=== PATIENT | female | born 1945 | race Hispanic/Latino ===

== ENCOUNTER 2021-09-02 12:47 | Emergency (ER) | payer MEDICARE ==
[~2021-09-02] VITALS: Ht 157.5 cm; Wt 72.6 kg
[2021-09-02 15:51] LABS: BASOPHILS % (AUTO) 0.6 % (0.0-5.0); EOSINOPHILS % (AUTO) 3.2 % (0.0-8.0); HEMATOCRIT 24.8 % (36-48); LYMPHOCYTES % (AUTO) 23.5 % (21.0-51.0); MEAN CORPUSCULAR HEMOGLOBIN 29.2 pg (27.0-33.0); MEAN CORPUSCULAR VOLUME 93.9 fL (79-99); MONOCYTES % (AUTO) 5.9 % (3.0-13.0); NEUTROPHILS % (AUTO) 66.3 % (40.0-77.0); PLATELET COUNT (AUTO) 140 K/uL (130-400); RED BLOOD CELL COUNT(AUTO) 2.64 MIL/uL (4.00-5.50); RED CELL DISTRIBUTION WIDTH 13.3 % (11.0-15.5); WHITE BLOOD COUNT (AUTO) 6.6 K/uL (4.8-10.8)
[2021-09-02 16:00] LABS: CREATININE 5.3 mg/dL (0.5-1.5); POTASSIUM 5.5 mmol/L (3.5-5.1)
[2021-09-02 16:14] LABS: BILIRUBIN,TOTAL 0.2 mg/dL (0.2-1.0)
[2021-09-02 16:28] LABS: TOTAL PROTEIN, SERUM 6.4 g/dL (6.0-8.3)
[2021-09-02 18:24] VITALS: BP 172/81
== END 2021-09-02 18:27 | disposition home or self-care (01) ==
LOC: EDH 12:47
DX: I12.9 Hypertensive chronic kidney disease with stage 1 through stage 4 chronic kidney disease, or unspecified chronic kidney disease (principal); N18.9 Chronic kidney disease, unspecified; E78.00 Pure hypercholesterolemia, unspecified; J45.909 Unspecified asthma, uncomplicated; Z88.6 Allergy status to analgesic agent; Z90.49 Acquired absence of other specified parts of digestive tract
CPT/HCPCS: 36415; 80053; 84484; 85025; 93005

== ENCOUNTER 2023-10-23 13:47 | Emergency (ER) | payer MEDICARE ==
[~2023-10-23] VITALS: Ht 157.5 cm; Wt 72.6 kg
[~2023-10-23 13:47] MED LIST: APIX5TAB PO; ATOR10TA69 PO; HYDR50TA37 PO; LEVO750T68 PO; OSEL30CA PO; TORS100T16 PO
[2023-10-23] MEDS: HYDRALAZINE 20MG/ML VIAL IV ONE (15:10)
[2023-10-23] MEDS: ACETAMINOPHEN 500 MG TABLET PO ONE (15:10)
[2023-10-23 15:32] LABS: BASOPHILS # (AUTO) 0.05 K/uL (0.00-0.20); BASOPHILS % (AUTO) 0.8 % (0.0-5.0); HEMATOCRIT 40.7 % (36-48); IMMATURE GRANULOCYTE ABSOLUTE 0.02 K/uL (0-1); LYMPHOCYTES % (AUTO) 15.3 % (21.0-51.0); MEAN CORPUSCULAR HEMOGLOBIN 30.9 pg (27.0-33.0); MEAN CORPUSCULAR HGB CONC 32.4 g/dL (32.0-36.0); MEAN CORPUSCULAR VOLUME 95.3 fL (79-99); MONOCYTES # (AUTO) 0.5 K/uL (0.1-1.0); MONOCYTES % (AUTO) 7.4 % (3.0-13.0); NEUTROPHILS # (AUTO) 4.5 K/uL (1.8-7.7); NEUTROPHILS % (AUTO) 67.2 % (40.0-77.0); PLATELET COUNT (AUTO) 143 K/uL (130-400); RED BLOOD CELL COUNT(AUTO) 4.27 MIL/uL (4.00-5.50); RED CELL DISTRIBUTION WIDTH 13.9 % (11.0-15.5); WHITE BLOOD COUNT (AUTO) 6.7 K/uL (4.8-10.8)
[2023-10-23 15:44] LABS: CREATININE 4.2 mg/dL (0.5-1.5); POTASSIUM 4.4 mmol/L (3.5-5.1)
[2023-10-23 15:48] LABS: ALBUMIN 3.4 g/dL (3.5-5.0); BILIRUBIN,TOTAL 0.6 mg/dL (0.2-1.0); TOTAL PROTEIN, SERUM 6.8 g/dL (6.0-8.3)
[2023-10-23 15:58] VITALS: BP 162/71; PULSE 79; RESP 18; O2SAT 98
[2023-10-23] MEDS: NITROGLYCERIN 0.4 MG SL TAB SL PRN (16:43)
== END 2023-10-23 17:04 | disposition home or self-care (01) ==
LOC: EDH 13:47
DX: I10 Essential (primary) hypertension (principal); I12.0 Hypertensive chronic kidney disease with stage 5 chronic kidney disease or end stage renal disease; E11.22 Type 2 diabetes mellitus with diabetic chronic kidney disease; N18.5 Chronic kidney disease, stage 5; Z99.2 Dependence on renal dialysis; E78.00 Pure hypercholesterolemia, unspecified; Z79.01 Long term (current) use of anticoagulants; Z88.6 Allergy status to analgesic agent; Z90.5 Acquired absence of kidney
CPT/HCPCS: 99284; 80053; 85025; 36415; 93005; J0360

== ENCOUNTER 2024-02-12 13:25 | Emergency (ER) | payer MEDICARE, MEDICAID ==
[~2024-02-12] VITALS: Ht 162.6 cm; Wt 79.4 kg
[2024-02-12 13:55] LABS: BASOPHILS # (AUTO) 0.04 K/uL (0.00-0.20); BASOPHILS % (AUTO) 0.7 % (0.0-5.0); EOSINOPHILS # (AUTO) 0.59 K/uL (0.00-0.70); EOSINOPHILS % (AUTO) 10.7 % (0.0-8.0); HEMATOCRIT 31.7 % (36-48); IMMATURE GRANULOCYTE ABSOLUTE 0.02 K/uL (0-1); LYMPHOCYTES % (AUTO) 18.1 % (21.0-51.0); MEAN CORPUSCULAR HEMOGLOBIN 30.1 pg (27.0-33.0); MEAN CORPUSCULAR HGB CONC 31.9 g/dL (32.0-36.0); MEAN CORPUSCULAR VOLUME 94.6 fL (79-99); MONOCYTES # (AUTO) 0.4 K/uL (0.1-1.0); MONOCYTES % (AUTO) 6.5 % (3.0-13.0); NEUTROPHILS # (AUTO) 3.5 K/uL (1.8-7.7); NEUTROPHILS % (AUTO) 63.6 % (40.0-77.0); PLATELET COUNT (AUTO) 165 K/uL (130-400); RED BLOOD CELL COUNT(AUTO) 3.35 MIL/uL (4.00-5.50); RED CELL DISTRIBUTION WIDTH 14.4 % (11.0-15.5); WHITE BLOOD COUNT (AUTO) 5.5 K/uL (4.8-10.8)
[2024-02-12 14:10] LABS: CREATININE 3.6 mg/dL (0.5-1.0); POTASSIUM 4.1 mmol/L (3.5-5.1)
[2024-02-12] MEDS: OXYMETAZOLINE HCL SPRAY 15 ML BOTTLE EN SCH (15:07)
[2024-02-12] MEDS: CLONIDINE HCL 0.1 MG TABLET PO ONE (15:07)
[2024-02-12 17:59] VITALS: BP 159/69; PULSE 67; RESP 18; O2SAT 95
== END 2024-02-12 18:15 | disposition home or self-care (01) ==
LOC: EDH 13:25
DX: R07.89 Other chest pain (principal); I12.0 Hypertensive chronic kidney disease with stage 5 chronic kidney disease or end stage renal disease; E11.22 Type 2 diabetes mellitus with diabetic chronic kidney disease; N18.6 End stage renal disease; Z99.2 Dependence on renal dialysis; Z79.01 Long term (current) use of anticoagulants; Z88.6 Allergy status to analgesic agent
CPT/HCPCS: 36415; 71045; 80048; 83735; 84484; 85025; 93005